=== PATIENT | female | born 1970 | race Caucasian/White ===

== ENCOUNTER 2018-04-16 16:16 | Emergency (ER) | payer MEDICARE, OTHER ==
[~2018-04-16] VITALS: Ht 162.6 cm; Wt 117.5 kg
[~2018-04-16 16:16] MED LIST: CLONAZEPAM0.5 MG PO; EFFEXOR XR75 MG PO; TOPROL XL50 MG PO
[2018-04-16 17:49] LABS: CLARITY,URINE SL CLOUDY (CLEAR); COLOR,URINE YELLOW (YELLOW); LEUKOCYTE ESTERASE ,URINE NEGATIVE (NEGATIVE)
[2018-04-16 17:50] LABS: BILIRUBIN,URINE NEGATIVE (NEGATIVE); KETONES,URINE NEGATIVE (NEGATIVE); NITRITE,URINE NEGATIVE (NEGATIVE); PROTEIN,URINE DIPSTICK NEGATIVE (NEGATIVE); URINE UROBILINOGEN 0.2 mg/dL (0.2 - 1)
[2018-04-16 18:00] LABS: BACTERIA,URINE MODERATE /HPF; EPITHELIAL CELLS,URINE MANY /LPF; MUCUS,URINE MODERATE (RARE)
--- NOTE | 2018-04-16 18:03 | Diagnostic Imaging Report ---
PROCEDURE:X-RAY CHEST, ONE VIEW COMPARISON:None. INDICATIONS:BILATERAL LEG PAIN AND SWELLING, SHORTNESS OF BREATH X 2 DAYS FINDINGS: Cardiomediastinal silhouette is normal. Pulmonary vascular markings are normal. No mass or infiltrate. No interstitial edema. No pleural effusion or pneumothorax. Mild central eventration of right diaphragm. No focal osseous lesions. Soft tissues are unremarkable. CONCLUSION: No acute cardiopulmonary process. Dictated by: Emre Egan M.D. on 04/16/2018 at 18:06 Electronically approved by: Emre Egan M.D. on 04/16/2018 at 18:06
[2018-04-16 19:24] LABS: BASOPHILS % 0.4 % (0.0-1.0); EOSINOPHILS # (AUTO) 0.3 (0.0-0.4); EOSINOPHILS % 4.7 % (0.0-6.0); HEMATOCRIT 30.3 % (34.2-44.1); HEMOGLOBIN 9.4 g/dL (12.0-16.0); LYMPHOCYTES # (AUTO) 2.1 (1.0-3.2); LYMPHOCYTES % 30.3 % (18.0-39.1); MEAN CORPUSCULAR HEMOGLOBIN 18.4 pg (28-32); MEAN CORPUSCULAR VOLUME 59.2 fL (81-99); MONOCYTES # (AUTO) 0.5 (0.2-0.8); MONOCYTES % 6.9 % (4.4-11.3); NEUTROPHILS # (AUTO) 3.9 (2.1-6.9); NEUTROPHILS % 57.3 % (38.7-80.0); PLATELET COUNT 278 x10e3/uL (140-360); RED BLOOD COUNT 5.12 x10e6/uL (3.6-5.1); RED CELL DISTRIBUTION WIDTH 18.9 % (11.7-14.4)
[2018-04-16 19:35] LABS: ALANINE AMINOTRANSFERASE 25 IU/L (0-55); ALBUMIN 3.5 g/dL (3.5-5.0); ALBUMIN/GLOBULIN RATIO 1.1 (0.8-2.0); ALKALINE PHOSPHATASE 76 IU/L (40-150); ANION GAP 12.3 mmol/L (8-16); BLOOD UREA NITROGEN 19 mg/dL (7-26); BUN/CREATININE RATIO 24 (6-25); CARBON DIOXIDE 21 mmol/L (22-29); CHLORIDE 109 mmol/L (98-107); CREATININE, SERUM 0.78 mg/dL (0.57-1.11); EST GLOMERULAR FILTRATION RATE > 60 ML/MIN (60-); GLUCOSE 111 mg/dL (74-118); POTASSIUM 3.3 mmol/L (3.5-5.1); SODIUM 139 mmol/L (136-145)
== END 2018-04-16 21:45 | disposition home or self-care (01) ==
LOC: ER 16:16
DX: R60.0 Localized edema (principal); G62.9 Polyneuropathy, unspecified; F32.9 Major depressive disorder, single episode, unspecified; F41.9 Anxiety disorder, unspecified
CPT/HCPCS: 36415; 71045; 80053; 81001; 83880; 85025; 93005; 99283

== ENCOUNTER 2018-07-09 09:39 | Emergency (ER) | payer OTHER ==
[~2018-07-09] VITALS: Ht 157.5 cm; Wt 117.0 kg
[2018-07-09] MEDS ORDERED: KETOROLAC TROMETHAMINE 60 MG/2 ML VIAL IM ONE (10:15)
== END 2018-07-09 14:16 | disposition home or self-care (01) ==
LOC: ER 09:39
DX: M79.642 Pain in left hand (principal); G89.11 Acute pain due to trauma; I10 Essential (primary) hypertension; F41.9 Anxiety disorder, unspecified; F32.9 Major depressive disorder, single episode, unspecified; Z98.84 Bariatric surgery status; Z87.891 Personal history of nicotine dependence
CPT/HCPCS: 99283; J1885

== ENCOUNTER 2019-04-01 08:29 | Emergency (ER) | payer OTHER ==
[~2019-04-01] VITALS: Ht 157.5 cm; Wt 125.2 kg
[2019-04-01] MEDS ORDERED: ACETAMINOPHEN 325 MG TAB PO ONE (09:15)
[2019-04-01] MEDS ORDERED: IBUPROFEN 600 MG TAB PO STA (09:15)
[2019-04-01 09:56] LABS: INFLUENZAE A&B ANTIGEN (RAPID) NEGATIVE (NEGATIVE); STREPTOCOCCUS GRP A ANTIGEN NEGATIVE (NEGATIVE)
--- NOTE | 2019-04-01 10:09 | Diagnostic Imaging Report ---
EXAMINATION: CHEST 2 VIEWS INDICATION: Shortness of breath. COMPARISON: Chest radiograph 04/16/2018. FINDINGS: TUBES and LINES: None. LUNGS: Lungs are moderately inflated. There is no evidence of pneumonia or pulmonary edema. PLEURA: No pleural effusion or pneumothorax. HEART AND MEDIASTINUM: The cardiomediastinal silhouette is unremarkable. BONES AND SOFT TISSUES: No acute osseous abnormality. UPPER ABDOMEN: No free air under the diaphragm. IMPRESSION: No acute radiographic abnormality. Signed by: Dr. Davey Hernandez MD on 04/01/2019 10:05 AM
--- NOTE | 2019-04-01 10:10 | Diagnostic Imaging Report ---
CT BRAIN WO HISTORY: Dizziness COMPARISON: None. TECHNIQUE: Noncontrast axial scans were obtained from skull base to the vertex. Coronal and sagittal reconstructions obtained from the axial data. One or more of the following dose reduction techniques were used: Automated exposure control, adjustment of the mA and/or kV according to patient size, and/or utilization of iterative reconstruction technique. Beam hardening artifacts obscure some details. DISCUSSION: Scalp/Skull: Unremarkable. Brain sulci: Appropriate for patient's age. Ventricles: Normal in size and configuration. No hydrocephalus. Extra-axial spaces: No masses or fluid collections. Parenchyma: No abnormal densities. No mass, hemorrhage, or large vascular territory acute infarct. Dural sinuses: No abnormal densities. Sellar/Suprasellar region: Intact. Skull base: Small, mixed lucent/groundglass lesion along the posterior right sphenoid sinus is likely a benign fibro-osseous lesion. Incidental findings: There is minimal mucosal thickening in the medial left sphenoid sinus. Partially visualized, chronic-appearing focal defect in the right orbital floor is likely from remote trauma; a small amount of orbital fat herniates through the defect. IMPRESSION: No intracranial abnormalities. Signed by: Dr. Kin Motta M.D. on 04/01/2019 10:07 AM
[2019-04-01] MEDS ORDERED: LIDOCAINE HCL 1% LOCAL INJ 20 ML VIAL INJ ONE (10:30)
[2019-04-01] MEDS ORDERED: CEFTRIAXONE SOD 1 GM VIAL IM ONE (10:30)
[2019-04-01 11:15] VITALS: BP 110/62
== END 2019-04-01 11:22 | disposition home or self-care (01) ==
LOC: ER 08:29
DX: H66.002 Acute suppurative otitis media without spontaneous rupture of ear drum, left ear (principal); H60.312 Diffuse otitis externa, left ear; I10 Essential (primary) hypertension; Z88.8 Allergy status to other drugs, medicaments and biological substances
CPT/HCPCS: 70450; 71046; 83518; 87070; 87400; 99284; J0696; J2001

== ENCOUNTER 2019-09-13 07:35 | Emergency (ER) | payer OTHER ==
[~2019-09-13] VITALS: Ht 157.5 cm; Wt 125.2 kg
[2019-09-13] MEDS ORDERED: ALBUTEROL/IPRATROPIUM 3 ML NEB NEB ONE (07:45)
[2019-09-13] MEDS ORDERED: KETOROLAC TROMETHAMINE 60 MG/2 ML VIAL IM ONE (07:45)
[2019-09-13] MEDS ORDERED: DEXAMETHASONE SOD PHOS 10 MG/1 ML VIAL IM ONE (07:45)
--- NOTE | 2019-09-13 08:38 | Diagnostic Imaging Report ---
EXAMINATION: CHEST 2 VIEWS INDICATION: Cough COMPARISON: Chest radiograph of 04/01/2019 FINDINGS: LINES/TUBES:None LUNGS:The lungs are well-inflated. No focal consolidation or pulmonary edema. PLEURA:No pleural effusion or pneumothorax. MEDIASTINUM:The cardiomediastinal silhouette appears normal in size and shape. BONES/SOFT TISSUES:No acute osseous injury. ABDOMEN:No free air under the diaphragm. IMPRESSION: No focal pneumonia or pulmonary edema. Signed by: Jak Landaverde MD on 09/13/2019 8:35 AM
[2019-09-13] MEDS ORDERED: KETOROLAC TROMETHAMINE 30 MG/ML VIAL IV STA (09:03)
[2019-09-13] MEDS ORDERED: DEXAMETHASONE SOD PHOS 10 MG/1 ML VIAL IV ONE (09:15)
[2019-09-13] MEDS ORDERED: GUAIFENESIN/DEXTROMETHORPHAN LIQD 5 ML UDC PO ONE (09:15)
[2019-09-13] MEDS ORDERED: SODIUM CHLORIDE 0.9% 1000ML 1,000 ML IV ONE (09:15)
[2019-09-13 10:53] VITALS: BP 133/82
== END 2019-09-13 11:08 | disposition home or self-care (01) ==
LOC: ER 07:35
DX: R50.9 Fever, unspecified (principal); R05 Cough; I10 Essential (primary) hypertension
CPT/HCPCS: 71046; 83518; 87070; 87400; 94640; 99284; J1100; J1885; J7030

== ENCOUNTER 2020-01-13 10:37 | Emergency (ER) | payer OTHER ==
[~2020-01-13] VITALS: Ht 157.5 cm; Wt 125.2 kg
[2020-01-13] MEDS ORDERED: SODIUM CHLORIDE 0.9% 1000ML 1,000 ML IV STA (10:39)
[2020-01-13] MEDS ORDERED: ASPIRIN 81 MG CHEW TAB PO ONE (10:45)
[2020-01-13] MEDS ORDERED: KETOROLAC TROMETHAMINE 30 MG/ML VIAL IV STA (10:54)
[2020-01-13] MEDS ORDERED: METOCLOPRAMIDE HCL 10 MG/2ML VIAL IV ONE (11:00)
[2020-01-13 11:18] LABS: BASOPHILS # (AUTO) 0.1 (0.0-0.1); BASOPHILS % 0.8 % (0.0-1.0); EOSINOPHILS # (AUTO) 0.2 (0.0-0.4); EOSINOPHILS % 2.4 % (0.0-6.0); HEMATOCRIT 36.9 % (34.2-44.1); HEMOGLOBIN 11.2 g/dL (12.0-16.0); LYMPHOCYTES # (AUTO) 2.2 (1.0-3.2); LYMPHOCYTES % 30.7 % (18.0-39.1); MEAN CORPUSCULAR HEMOGLOBIN 18.6 pg (28-32); MEAN CORPUSCULAR HGB CONC 30.4 g/dL (31-35); MEAN CORPUSCULAR VOLUME 61.4 fL (81-99); MONOCYTES # (AUTO) 0.5 (0.2-0.8); MONOCYTES % 7.2 % (4.4-11.3); NEUTROPHILS # (AUTO) 4.2 (2.1-6.9); NEUTROPHILS % 58.6 % (38.7-80.0); PLATELET COUNT 302 x10e3/uL (140-360); RED BLOOD COUNT 6.01 x10e6/uL (3.6-5.1); RED CELL DISTRIBUTION WIDTH 19.8 % (11.7-14.4)
[2020-01-13 11:20] LABS: CLARITY,URINE CLEAR (CLEAR); COLOR,URINE YELLOW (YELLOW)
[2020-01-13 11:21] LABS: BILIRUBIN,URINE NEGATIVE (NEGATIVE); KETONES,URINE NEGATIVE (NEGATIVE); LEUKOCYTE ESTERASE ,URINE MODERATE (NEGATIVE); NITRITE,URINE NEGATIVE (NEGATIVE); PROTEIN,URINE DIPSTICK NEGATIVE (NEGATIVE); URINE UROBILINOGEN 0.2 mg/dL (0.2 - 1)
[2020-01-13 11:22] LABS: BACTERIA,URINE RARE /HPF; EPITHELIAL CELLS,URINE FEW /LPF
[2020-01-13 11:40] LABS: ALANINE AMINOTRANSFERASE 15 IU/L (0-55); ALBUMIN 3.9 g/dL (3.5-5.0); ALKALINE PHOSPHATASE 82 IU/L (40-150); ANION GAP 16.1 mmol/L (8-16); BLOOD UREA NITROGEN 17 mg/dL (7-26); BUN/CREATININE RATIO 19 (6-25); CALCIUM 9.6 mg/dL (8.4-10.2); CARBON DIOXIDE 23 mmol/L (22-29); CHLORIDE 105 mmol/L (98-107); CREATINE KINASE 34 IU/L (29-168); CREATININE, SERUM 0.88 mg/dL (0.57-1.11); EST GLOMERULAR FILTRATION RATE > 60 ML/MIN (60-); GLUCOSE 134 mg/dL (74-118); POTASSIUM 5.1 mmol/L (3.5-5.1); SODIUM 139 mmol/L (136-145)
--- NOTE | 2020-01-13 11:47 | Diagnostic Imaging Report ---
Exam: Head CT without contrast History: Headache, nausea Comparison studies: Head CT 04/01/2019 Technique: Axial images were obtained from the skull base to the vertex. Coronal and sagittal images reconstructed from the axial data. Dose modulation, iterative reconstruction, and/or weight based adjustment of the mA/kV was utilized to reduce the radiation dose to as low as reasonably achievable. Radiation dose: Total DLP: 1036.57 mGy*cm. Estimated effective dose: DLP x 0.015 Intravenous contrast: None Findings: Scalp: No abnormalities. Bones: No fractures, blastic or lytic lesions. Brain sulci: Appropriate for age. Ventricles: Unchanged 2 mm hyperdensity near the foramen of Monro which may be a small colloid cyst which does not result ventricular obstruction. No hydrocephalus. Extra-axial spaces: No masses, no fluid collection. Parenchyma: No abnormal densities. No masses, acute hemorrhage, acute or chronic vascular insults. Sellar/suprasellar region: No abnormalities. Craniocervical junction: Patent foramen magnum. No Chiari one malformation. Incidental findings: Chronic depressed right orbital floor fracture. Small left sphenoid sinus retention cyst nonspecific frothy secretions in the right sphenoid sinus. Secretions IMPRESSION: No acute intracranial abnormalities. Signed by: Dr. Quinten Ruby M.D. on 01/13/2020 11:44 AM
== END 2020-01-13 12:26 | disposition home or self-care (01) ==
LOC: ER 10:37
DX: G44.89 Other headache syndrome (principal); R11.0 Nausea; R05 Cough; F41.9 Anxiety disorder, unspecified; Z98.84 Bariatric surgery status
CPT/HCPCS: 36415; 70450; 80053; 81001; 82550; 82553; 83880; 84484; 85025; 93005; 99284; J1885; J2765; J7030

== ENCOUNTER 2020-01-18 09:42 | Emergency (ER) | payer OTHER ==
[~2020-01-18] VITALS: Ht 157.5 cm; Wt 120.7 kg
[2020-01-18 11:02] VITALS: BP 122/71
== END 2020-01-18 11:06 | disposition home or self-care (01) ==
LOC: ER 09:42
DX: R05 Cough (principal)
CPT/HCPCS: 99282

== ENCOUNTER 2021-01-17 10:59 | Emergency (ER) | payer OTHER ==
[~2021-01-17] VITALS: Ht 162.6 cm; Wt 116.1 kg
[2021-01-17] MEDS ORDERED: KETOROLAC TROMETHAMINE 30 MG/ML VIAL IV STA (11:13)
[2021-01-17] MEDS ORDERED: KETOROLAC TROMETHAMINE 30 MG/ML VIAL ONE (12:06)
== END 2021-01-17 12:10 | disposition home or self-care (01) ==
LOC: FSED 11:10
DX: R07.89 Other chest pain (principal); R06.02 Shortness of breath; G62.9 Polyneuropathy, unspecified; F41.9 Anxiety disorder, unspecified; F32.9 Major depressive disorder, single episode, unspecified; Z98.84 Bariatric surgery status
CPT/HCPCS: 71045; 93005; 99283; J1885